=== PATIENT | female | born 1995 | race Caucasian/White ===

== ENCOUNTER 2021-02-04 00:43 | Emergency (ER) | payer OTHER ==
[~2021-02-04] VITALS: Ht 154.9 cm; Wt 72.6 kg
[2021-02-04 01:10] VITALS: BP 119/78
--- NOTE | 2021-02-04 01:13 | NUR ---
TO LOBBY A/W BED AMBULATORY
--- NOTE | 2021-02-04 01:40 | NUR ---
PT REPORTS DEFECATING FOREIGN OBJECT IN RESTROOM AND NO LONGER WANTS TO BE EVALUATED BY ERMD. PATIENT LEFT WITHOUT BEING SEEN BY DR. FORD. NO FURTHER CARE PROVIDED FOR PATIENT.
== END 2021-02-04 01:40 | disposition left against medical advice (07) ==
LOC: MED 00:43
DX: T18.5XXA Foreign body in anus and rectum, initial encounter (principal); Z53.21 Procedure and treatment not carried out due to patient leaving prior to being seen by health care provider; X58.XXXA Exposure to other specified factors, initial encounter; Y93.89 Activity, other specified; Y92.89 Other specified places as the place of occurrence of the external cause; Y99.8 Other external cause status